=== PATIENT | female | born 1980 | race Caucasian/White ===

== ENCOUNTER 2024-05-05 09:00 | Emergency (ER) | payer SELFPAY ==
[~2024-05-05] VITALS: Ht 160 cm; Wt 65.0 kg
[2024-05-05 09:26] VITALS: O2SAT 100
[2024-05-05 10:01] VITALS: TEMP 98.6
[2024-05-05] MEDS ORDERED: IBUP-1523 MT (10:01)
[2024-05-05] MEDS ORDERED: CYCL10TA21 MT (10:01)
[2024-05-05] MEDS: ACETAMINOPHEN 325MG TABLET PO ONE (10:01)
[2024-05-05] MEDS ORDERED: ACET-2708 MT (10:01)
[2024-05-05 10:58] VITALS: BP 128/74; PULSE 76; RESP 16; O2SAT 99
== END 2024-05-05 10:58 | disposition home or self-care (01) ==
LOC: ER 09:00
DX: M54.50 Low back pain, unspecified (principal)
CPT/HCPCS: 99283